=== PATIENT | female | born 1975 | race Caucasian/White ===

== ENCOUNTER 2016-08-25 22:06 | Emergency (ER) | payer MEDICAID ==
[2016-08-25 22:32] LABS: BASOPHILS 0.4 % (0.0-2.0); EOSINOPHILS 1.3 % (0-7); HEMATOCRIT 38.1 % (36.0-48.0); HEMOGLOBIN 12.2 g/dL (12-16); IMMATURE GRANULOCYTES 0.2 % (0-5); LYMPHOCYTES 37.9 % (15-50); MCH 28.4 pg (26.0-34.0); MCV 88.8 fL (80.0-100.0); MEAN PLATELET VOLUME 10.1 fL (7.4-10.4); MONOCYTES 8.8 % (2-11); NEUTROPHILS 51.4 % (40-80); PLATELET COUNT 249 10x3/uL (130-400); RBC 4.29 10x6/uL (4.00-5.40); WBC 10.2 10x3/uL (4.8-10.8)
[2016-08-25 22:49] LABS: HCG SERUM NEGATIVE (NEGATIVE)
[2016-08-26 00:55] LABS: INR 0.99 (0.85-1.17); PROTIME 12.9 SECONDS (11.6-15.0)
== END 2016-08-26 01:55 | disposition home or self-care (01) ==
LOC: D.ER 22:06
PROVIDERS: Emergency Medicine
DX: N93.9 Abnormal uterine and vaginal bleeding, unspecified (principal); F32.9 Major depressive disorder, single episode, unspecified; I10 Essential (primary) hypertension

== ENCOUNTER → 2016-08-27 12:05 | Outpatient (CLI) | payer MEDICAID | END | disposition home or self-care (01) | LOC: D.RAD 12:05 | DX: N93.9 Abnormal uterine and vaginal bleeding, unspecified (principal); R10.2 Pelvic and perineal pain ==

== ENCOUNTER → 2017-06-19 12:15 | Outpatient (CLI) | payer MEDICAID | END | disposition home or self-care (01) | LOC: D.LAB 12:15 | DX: T78.1XXA Other adverse food reactions, not elsewhere classified, initial encounter (principal); X58.XXXA Exposure to other specified factors, initial encounter ==

== ENCOUNTER 2018-02-10 08:00 | Outpatient (CLI) | payer MEDICAID | END 2018-02-10 14:15 | disposition home or self-care (01) | LOC: D.MAMMO 08:00 | DX: Z12.31 Encounter for screening mammogram for malignant neoplasm of breast (principal) ==

== ENCOUNTER → 2018-04-01 18:01 | Outpatient (CLI) | payer MEDICAID | END | disposition home or self-care (01) | LOC: D.MAMMO 03-05 13:30 | DX: R92.8 Other abnormal and inconclusive findings on diagnostic imaging of breast (principal) ==

== ENCOUNTER 2018-08-15 14:52 | Emergency (ER) | payer MEDICAID ==
[~2018-08-15] VITALS: Ht 162.6 cm; Wt 128.6 kg
[2018-08-15 15:05] VITALS: Ht 162.6 cm; Wt 128.6 kg
[2018-08-15] MEDS ORDERED: CELEXA10 MG PO (15:06)
[2018-08-15] MEDS ORDERED: DYRENIUM50 MG (15:06)
[2018-08-15 16:03] LABS: APPEARANCE CLOUDY (CLEAR); COLOR RED (YELLOW)
[2018-08-15 16:04] LABS: BILIRUBIN NEGATIVE (NEGATIVE); EPITHELIAL CELLS 0-5 /hpf (0-5); GLUCOSE NEGATIVE (NEGATIVE); KETONE SMALL mg/dL (NEGATIVE); NITRITE NEGATIVE (NEGATIVE); PROTEIN 2+ mg/dL (NEGATIVE); RED CELLS - URINE >50 /hpf (0-5); UROBILINOGEN NORMAL (NORMAL); WHITE CELLS - URINE RARE /hpf (0-5)
[2018-08-15 16:07] LABS: BASOPHILS 0.2 % (0-2); EOSINOPHILS 0.6 % (0-7); HEMATOCRIT 37.9 % (36.0-48.0); HEMOGLOBIN 12.4 g/dL (12-16); IMMATURE GRANULOCYTES 0.3 % (0-5); LYMPHOCYTES 29.5 % (15-50); MCH 28.2 pg (26.0-34.0); MCHC 32.7 g/dL (31.0-37.0); MCV 86.1 fL (80.0-100.0); MEAN PLATELET VOLUME 9.7 fL (7.4-10.4); MONOCYTES 8.7 % (2-11); NEUTROPHILS 60.7 % (40-80); PLATELET COUNT 283 10x3/uL (130-400); RDW 14.5 % (11.5-14.5); WBC 11.7 10x3/uL (4.8-10.8)
[2018-08-15 16:26] LABS: ALKALINE PHOSPHATASE 96 U/L (46-116); ALT (SGPT) 21 U/L (10-68); BILIRUBIN - TOTAL 0.11 mg/dL (0.2-1.3); CALC OSMOLALITY 275 mosm/kg (275-300); CALCIUM 8.5 mg/dL (8.5-10.1); CARBON DIOXIDE 27.2 mmol/L (21.0-32.0); CHLORIDE - SERUM 102 mmol/L (98-107); CREATININE - SERUM 0.8 mg/dL (0.6-1.3); GLUCOSE 102 mg/dL (74-106); POTASSIUM - SERUM 3.2 mmol/L (3.5-5.1); SODIUM 139 mmol/L (136-145); UREA NITROGEN 7 mg/dL (7-18); eGFR NON AFRICAN AMERICAN 84 mL/min (90-120)
[2018-08-15 17:40] LABS: HCG SERUM NEGATIVE (NEGATIVE)
[2018-08-15 20:19] VITALS: BP 143/80
[2018-08-20] MEDS ORDERED: MAXZIDE 75/501 TAB PO (15:53)
== END 2018-08-15 20:19 | disposition home or self-care (01) ==
LOC: D.ER 14:52
PROVIDERS: Family Medicine
DX: N93.8 Other specified abnormal uterine and vaginal bleeding (principal); R51 Headache; I10 Essential (primary) hypertension

== ENCOUNTER 2018-08-18 15:27 | Emergency (ER) | payer MEDICAID ==
[~2018-08-18] VITALS: Ht 162.6 cm; Wt 128.6 kg
[~2018-08-18 15:27] MED LIST: CELEXA10 MG PO; DYRENIUM50 MG
[2018-08-18 15:37] VITALS: Ht 162.6 cm; Wt 128.6 kg
[2018-08-18 16:12] LABS: BASOPHILS 0.1 % (0-2); EOSINOPHILS 0.4 % (0-7); HEMATOCRIT 37.9 % (36.0-48.0); HEMOGLOBIN 12.3 g/dL (12-16); IMMATURE GRANULOCYTES 0.3 % (0-5); LYMPHOCYTES 12.7 % (15-50); MCH 28.1 pg (26.0-34.0); MCHC 32.5 g/dL (31.0-37.0); MCV 86.5 fL (80.0-100.0); MEAN PLATELET VOLUME 9.7 fL (7.4-10.4); MONOCYTES 6.6 % (2-11); NEUTROPHILS 79.9 % (40-80); PLATELET COUNT 232 10x3/uL (130-400); RBC 4.38 10x6/uL (4.00-5.40); RDW 14.4 % (11.5-14.5); WBC 10.5 10x3/uL (4.8-10.8)
[2018-08-18 16:17] LABS: APTT 28.8 SECONDS (22.8-39.4); INR 0.96 (0.85-1.17); PROTIME 12.3 SECONDS (11.6-15.0)
[2018-08-18 16:24] LABS: ALKALINE PHOSPHATASE 96 U/L (46-116); ALT (SGPT) 17 U/L (10-68); BILIRUBIN - TOTAL 0.17 mg/dL (0.2-1.3); CALC OSMOLALITY 276 mosm/kg (275-300); CALCIUM 8.2 mg/dL (8.5-10.1); CARBON DIOXIDE 25.4 mmol/L (21.0-32.0); CHLORIDE - SERUM 103 mmol/L (98-107); CREATININE - SERUM 0.7 mg/dL (0.6-1.3); GLUCOSE 100 mg/dL (74-106); POTASSIUM - SERUM 3.6 mmol/L (3.5-5.1); PROTEIN - SERUM 7.1 g/dL (6.4-8.2); SODIUM 139 mmol/L (136-145); UREA NITROGEN 10 mg/dL (7-18); eGFR NON AFRICAN AMERICAN > 90 mL/min (90-120)
[2018-08-18 16:33] LABS: HCG - QUANTITATIVE (MATERNAL) 0 mIU/mL
[2018-08-18 17:23] VITALS: BP 143/91
[2018-08-20] MEDS ORDERED: MAXZIDE 75/501 TAB PO (15:53)
[2018-08-24 06:02] VITALS: Ht 162.6 cm; Wt 128.6 kg
== END 2018-08-18 17:24 | disposition home or self-care (01) ==
LOC: D.ER 15:27
PROVIDERS: Family Medicine
DX: N93.9 Abnormal uterine and vaginal bleeding, unspecified (principal); D25.9 Leiomyoma of uterus, unspecified; I10 Essential (primary) hypertension

== ENCOUNTER 2018-08-24 05:00 | Inpatient (IN) | payer MEDICAID ==
[2018-08-20 16:54] LABS: BASOPHILS 0.1 % (0-2); EOSINOPHILS 1.2 % (0-7); HEMATOCRIT 34.9 % (36.0-48.0); HEMOGLOBIN 11.2 g/dL (12-16); IMMATURE GRANULOCYTES 0.1 % (0-5); MCH 27.7 pg (26.0-34.0); MCHC 32.1 g/dL (31.0-37.0); MCV 86.4 fL (80.0-100.0); MEAN PLATELET VOLUME 10.1 fL (7.4-10.4); MONOCYTES 10.5 % (2-11); NEUTROPHILS 59.1 % (40-80); PLATELET COUNT 260 10x3/uL (130-400); RBC 4.04 10x6/uL (4.00-5.40); RDW 14.7 % (11.5-14.5); WBC 8.6 10x3/uL (4.8-10.8)
[2018-08-20 17:07] LABS: CALCIUM 8.3 mg/dL (8.5-10.1); CARBON DIOXIDE 26.6 mmol/L (21.0-32.0); POTASSIUM - SERUM 3.6 mmol/L (3.5-5.1)
[~2018-08-24] VITALS: Ht 162.6 cm; Wt 126.6 kg
[~2018-08-24 05:00] MED LIST changes: +MAXZIDE 75/501 TAB PO
[2018-08-24 06:01] LABS: HCG URINE NEGATIVE (NEGATIVE)
[2018-08-24 06:02] VITALS: BP 157/84; Ht 162.6 cm; Wt 126.6 kg
--- NOTE | 2018-08-24 09:24 | NUR ---
ANES APPROVED D/C ON 3 L. O2 VIA CANULA
[2018-08-24 09:46] VITALS: BP 138/69
--- NOTE | 2018-08-24 09:58 | NUR ---
SARA NAVA, MULTI PUNCH OPERATOR PAGED. PT'S O2 IS 92%, PT WAS ON 3 LNC FOR TRANSPORT AND NOW O2 HAS BEEN INCREASED TO 4L NC.
--- NOTE | 2018-08-24 10:03 | NUR ---
REPORT CALLED TO DR. SANTOS OF PT'S O2 SAT 92 % ON 3 LNC. TELEPHONE ORDER RECEIVED TO CONTINUE PT'S O2 NC AT 3L, AND MAY INCREASE TO 4L NC TO MAINTAIN O2 SAT AT 94% OR ABOVE, NOT TO GO ABOVE 6LNC. PT'S O2 NC INCREASED TO 4LNC.
--- NOTE | 2018-08-24 10:12 | NUR ---
PHONE CALL MADE TO OR #1, SPOKE WITH FARRUKH BRANDON RN WITH REPORT GIVEN THAT PT IS NOW ON 4 L O2 NC SAT 93-94%. REPORT ALSO GIVEN TO RN THAT PT IS VERY DROWSY, WILL RESPOND ON 2ND-3RD ATTEMPT WHEN SPOKEN TO, PT HAS HX OF SLEEP APNEA. REPORT GIVEN TO MD AND ANESTHESIA BY FARRUKH BRANDON RN. TELEPHONE ORDER RECEIVED FROM DR. PÉREZ/FARRUKH BRANDON RN TO OBTAIN BLOOD GAS NOW. ANESTHESIA QUESTIONS IF PT'S HOB IS ELEVATED, AND MD QUESTIONS IF PT'S LUNGS ARE CLEAR, AND ANSWER IS YES TO BOTH. Jose SAHA RN ENTERS ORDER FOR BLOOD GAS, AND NOTIFIES RESP.
--- NOTE | 2018-08-24 10:20 | NUR ---
TO PT'S ROOM, RESPIRATORY HERE TO DRAW ABG. PLAN OF CARE EXPLAINED TO PT, AND OLDER FEMALE VISITOR. PT AROUSES TO LOOK AT RN, AND IMMEDIATELY CLOSES EYES. RESP EVEN AND UL AT 14/MIN. RESP THERAPIST CONTINUES TO BE IN ROOM. O2 SAT REMAINS AT 94% ON 4L NC. SR UP X2, CALL LIGHT AND PHONE WITHIN REACH.
--- NOTE | 2018-08-24 10:37 | NUR ---
TO PT'S ROOM, INCENTIVE SPRIROMETER EXPLAINED, WITH PT DEMONSTRATING I/S WELL X 3. O2 SAT UP TO 97% ON 4LNC IMMEDIATELY AFTER USING I/S.
--- NOTE | 2018-08-24 10:42 | NUR ---
KELBY FROM RESP HERE TO TRY AND DRAW ABG, THE OTHER RESP THERAPIST WAS UNSUCCESSFUL IN OBTAINING ABG. O2 SAT ON 4LNC NOW 94%. PT ENCOURAGED TO WAKE UP, DEEP BREATHE AND COUGH. PT DEMONSTRATES STRONG COUGH X 1.
--- NOTE | 2018-08-24 10:50 | NUR ---
KELBY, RESP THERAPIST UNABLE TO OBTAIN ABG. KELBY AT DESK, AND STATES "CARLOS ALBERTO WILL COME DOWN AND TRAY AND GET THE ABG". KELBY REPORTS THAT PT IS "WAY MORE AWAKE NOW, AND STATES SHE IS ON A C-PAP AT HOME, BUT THE PATIENT SAYS SHE WILL NOT WEAR IT".
--- NOTE | 2018-08-24 11:00 | NUR ---
DR. PÉREZ AT [facility], WITH REPORT GIVEN TO MD OF PT'S ASSESSMENT, INCLUDING O2 SAT, AND PT IS CURRENTLY ON O2 4LNC. VERBAL ORDER RECEIVED FROM DR. PÉREZ TO PLACE PT ON 2L NC, TITRATE TO KEEP O2 SAT ABOVE 94%.
--- NOTE | 2018-08-24 11:05 | NUR ---
DR. PÉREZ AT [facility], REPORT GIVEN TO MD OF CURRENT O2 SATS AT 94 % ON 4LNC. RESP THERAPIST AT [facility], AND SHE INFORMS MD THAT SHE WAS UNABLE TO OBTAIN ABG. VERBAL ODER RECEIVED TO D/C ABG AT THIS TIME. MD REVIEWS MONITOR TRACING WITH VITAL SIGNS TO INCLUDE BP/P/02 SAT.
--- NOTE | 2018-08-24 14:18 | NUR ---
PT LYING IN BED, AROUSES EASILY. DOZES OFF BETWEEN BITES OF HER BROTH. PT REPORTS ABDOMINAL PAIN 1/10 AT INCISION SITE. FAMILY MEMBER AT BEDSIDE. FRESH ICE PACK PLACED ON PT INCISION. PULSE OX 98%, DECREASED O2 TO 3LPM. PT REPORTS BEING HOT, ADJUSTED TEMP SETTING ON THERMOSTAT. PT DENIES ANY FUTHER NEEDS AT THIS TIME.
--- NOTE | 2018-08-24 16:05 | NUR ---
TO PT'S ROOM, PT IS LYING IN BED, WITH O2NC AT 2L, O2 SAT 96-97%. PT HAS EATEN 50% OF HER CLEAR LIQUID DIET, DENIES NAUSEA OR SOB. PT'S FAMILY REMAINS AT BEDSIDE.
--- NOTE | 2018-08-24 17:55 | NUR ---
PT SITTING UP IN BED VISITING WITH FAMILY MEMBER. SHE IS ALERT AND ORIENTED X3. DRAINED JOAQUIN, TOTAL OUTPUT 910 ML. CLEANED PERINEUM AND PLACED CLEAN CHUCKS. NO BLEEDING WAS NOTED. REFILLED PT'S DRINK AND ICE PACK AND PLACED ON ABDOMEN. PT REPORTS "SOME PAIN" BUT STATES SHE WOULD LIKE TO WAIT FOR PAIN MEDICATION WHEN HER VISITORS LEAVE. PT DENIES ANY FURTHER NEEDS AT THIS TIME.
--- NOTE | 2018-08-24 18:30 | NUR ---
TO PT'S ROOM, PT'S FAMILY REMAINS AT BEDSIDE. PT STATES "I WILL WANT SOME PAIN MEDICATION, BUT I WANT TO WAIT UNTIL MY FAMILY LEAVES." INFORMED PT TO LET ME KNOW WHEN SHE IS READY FOR THE PAIN MEDICATION, PT AGREES. PT THEN STATES "I WOULD LIKE TO MOVE IN THE BED". PT'S POSITION CHANGED FROM BACK TO RIGHT TILT WITH PILLOWS PLACED UNDER BACK FOR SUPPORT. SRUP X2, CALL LIGHT AND PHONE WITHIN REACH. I/S DONE PER PT, WELL X3, COUGHING AND DEEP BREATHING EXERCISES DONE WELL.
--- NOTE | 2018-08-24 18:32 | OP ---
PATIENT NAME: RAISSA MEDICAL RECORD: [id number] :77 LOCATION:[id number] ADMISSION DATE:08/24/18 SURGEON: RITO PÉREZ MD DATE OF OPERATION: 08/24/2018 PREOPERATIVE DIAGNOSES: 1. Symptomatic fibroid uterus. 2. Morbid obesity. 3. Status post failed uterine artery embolization. POSTOPERATIVE DIAGNOSES: 1. Symptomatic fibroid uterus. 2. Morbid obesity. 3. Status post failed uterine artery embolization. PROCEDURES: 1. Exploratory laparotomy. 2. Bilateral salpingectomy. 3. Subtotal abdominal hysterectomy. SURGEON: Rito Pérez MD RADIATION THERAPY TECHNICIAN: Darren Magaña ANESTHESIOLOGIST: Dr. Peña ANESTHESIA: General. FINDINGS: Uterus is enlarged. There is a large fundal fibroid on the left. Overall, uterine size was approximately 12-14 weeks. Ovaries were unremarkable as well as the tubes. What was palpated of the abdominal anatomy was also unremarkable. SPECIMENS REMOVED: Bilateral tubes, uterus without cervix. SPECIMEN DISPOSITION: Pathology. ESTIMATED BLOOD LOSS: 150 cc. URINE OUTPUT: 600 cc of clear urine. FLUIDS: 1800 cc of Lactated Ringer's. COMPLICATIONS: None. DRAINS: Martin to gravity. INDICATIONS: The patient is a 42-year-old female, status post uterine artery embolization. The patient still reports heavy bleeding with intense cramping. The patient declines further medical management and requests definitive therapy. DESCRIPTION OF PROCEDURE: After informed consent was assured, the patient was taken to the operating room where anesthetic was obtained without difficulty. The patient was prepped and draped in the usual sterile fashion. A low transverse incision was made on the abdomen, carried down to the underlying OPERATIVE REPORT [id number] layer of the fascia, which was opened in the midline and extended laterally. The rectus bellies were dissected free superiorly and inferiorly and then the rectus bellies were now in the midline. The peritoneum was entered and the pelvis explored. Rolled sponges were placed in the pericolic gutters and a third sponge was placed at the corner in the cul-de-sac and the bowel was packed free of the pelvis. Using a malleable retractor and a [place] visualization, the uterine cornu was exposed on the left side. Placing a clamp over the cornual region of the left side, the uterus was elevated. The round ligament was grasped with the Brianna clamp and the broad ligament entered. Dissection was carried down anteriorly until the bladder flap was produced to the midline. Posteriorly, a window was made and 2 clamps passed through this opening. The pedicle was mobilized with scissors and a lrdm-rks-ngt stitch applied on the proximal aspect of the uteroovarian artery to obtain hemostasis. The remaining portion of the tube was removed by placing the clamp across the mesosalpinx and removing the tube with Metzenbaum scissors. A imub-nej-szl stitch was applied here for hemostasis. Dissection of the connective tissue continues along the left side of the uterus. The left vascular bundle was exposed and a Radha-Lana and a straight clamp was placed here. This pedicle was mobilized with scissors and a simple stitch in a mchj-izw-xup applied for hemostasis. Attention was directed to the right side. The uterus was elevated with clamp in a similar fashion. Brianna clamps used to elevate the round ligament and it was entered. The anterior leaf of the broad ligament was dissected all the way down and the bladder flap now fully developed. A window was made in the posterior aspect and a clamp was placed through this opening. The pedicle was mobilized with scissors and a riok-uux-ftj stitch applied for hemostasis. The connective tissue of the right side was dissected and the right vascular bundle exposed at the level of the internal os. This was doubly clamped and mobilized with scissors. Again, a simple stitch and a Radha stitch was applied here for hemostasis. Pelvis was inspected and the uterus now removed with Bovie cautery. After removal of the uterus from its attachments to the cervix, the endocervical canal was cauterized. Uterus and left tube specimen passed off the field. Attention was directed back at the right tube where a clamp was placed underneath it and it is removed with Metzenbaum scissors and a iijw-jox-jid stitch applied for hemostasis. The cervical stump was now closed with interrupted dynfsl-mw-zqvdr stitches. After it was completed, the pelvis was irrigated and irrigant removed. Inspection of the operative field revealed some bleeding at the right ovary. A running stitch of 3-0 Vicryl was used here to obtain hemostasis. Again, the pelvis was irrigated, irrigant removed and after inspection, adequate hemostasis has been achieved. The packings are now removed from the pelvis and our sponge count was correct times 1. Looped PDS was used to close the fascia. This was done in a running fashion. After the stitch was correct, a second count has been confirmed. The skin was reapproximated with a subcuticular stitch after reapproximating the deep tissues with a plain gut. Sterile dressing is applied. The patient went to the recovery area in stable condition. TRANSINT:[id number] Voice Confirmation ID: [id number] DOCUMENT ID: [id number] OPERATIVE REPORT [id number] JENNIFER HAJI JOSEPH E MD at 1832 CC: [id number] DICTATION DATE: 08/24/18 0838 ORTHOPAEDIC GENERAL: 08/24/18 1311 ADM IN [place] [id number] [place] [address]
--- NOTE | 2018-08-24 18:45 | NUR ---
PT'S O2 TURNED OFF FROM BEING ON 2LNC. WILL MONITOR OXYGEN LEVELS WITH O2 OFF.
--- NOTE | 2018-08-24 19:00 | NUR ---
SEE ALL VITAL SIGNS PRINTED OFF IN [facility].
[2018-08-24 19:49] VITALS: BP 125/61
--- NOTE | 2018-08-24 20:38 | NUR ---
1946 PT RECEIVED TIN BED AT THIS TIME. IV SITE OF LR INFUSING TO THE LFT HAND AT 50ML PER HOUR. SITE CLEAR AND PATENT. LUNGS CELAR. O2 AT 2L VIA NC NOTED. BS PRESENT, HYPOACTIVE. INCISION INTACT. NO DRAINAGE NOTED. JOAQUIN CATH PATENT WITH YELLOW URINE NOTED. PT VOMITING DURING ASSESSEMENT. NEW BAG OF LR STARTED AT 2007. WILL CONTINUE TO MONITOR. SIDERAILS UP FOR SAFETY X2. CALL LIGHT IN EASY REACH. José RO RN
--- NOTE | 2018-08-24 21:26 | NUR ---
2120 PT ASLEEP AT THIS TIME O2 DECREASED TO 1L VIA N/C. IV FLUIDS INCERASED TO 125 ML/HR. José RO RN
--- NOTE | 2018-08-24 21:31 | NUR ---
CONTACTED DR PÉREZ FOR ORDER CLARIFICATION, PT ALLERGY TO OXYCODONE REVIEWED, NEW ORDERS RECEIVED, TO NORMALIZE PT AND GET OOB TO AMBULATE IN HALLS, ADVANCE DIET TO REGULAR FOR BREAKFAST. RELAYED INFORMATION TO Rosy RO RN WHO IS CARING FOR PT.
--- NOTE | 2018-08-24 22:08 | NUR ---
2145 ORAL MEDICATIONS GIVEN AT THIS TIME. IV AND FILEY CATHETER REMOVED AT THIS TIME PER MD ORDER. 275 ML NOTED TO JOAQUIN CATH. 1266.03 ML FROM IV. PT UP TO RESTROOM TO CLEAN UP AT THIS TIME. José RO RN
--- NOTE | 2018-08-24 22:20 | NUR ---
2200 PT UP TO AMBULATE IN THE HALLWAY. PT TOLERATED WELL. WILL CONTINUE TO MONITOR. José RO RN
[2018-08-24 22:59] VITALS: BP 130/61
--- NOTE | 2018-08-24 23:51 | NUR ---
1151 PT ASSISTED TO RESTROOM. PT VOIDED 600 ML. ASSISTED WITH DEEP BREATHING EXERCISES UPON RETURN TO BED. PT STATES PAIN IS AN 8. MEDICATED WITH NORCO WITH PAIN PER MD ORDER. José RO RN
[2018-08-25 03:28] VITALS: BP 130/64
--- NOTE | 2018-08-25 03:32 | NUR ---
0330 PT RECEIVED ASLEEP EASILY AWAKENED AT THIS TIME. AFEBRILE THIS SHIFT. VOIDING WELL. DENIES PAIN THIS AM. ASSISTED TO TURN COUGH AND DEEP BREATHE THIS AM. PT TOLERATED WELL. INCISION INTACT WITOUT S/S OF INFECTION. NO ACUTE DISTRESS NOTED. SIDERAILS UP FOR SAFETY X2 CALL LIGHT IN EASY REACH. José RO RN
--- NOTE | 2018-08-25 05:43 | NUR ---
0542 PT ASLEEP AT THIS TIME 02 AT 1L VIA NC NOTED. NO ACUTE DSITRESS NOTED AT THIS TIME. José RO RN
--- NOTE | 2018-08-25 06:22 | NUR ---
0620 PT UP TO AMBULATE THIS AM IN THE [facility]. PT TOLERATED WELL. José RO RN
[2018-08-25 07:06] LABS: BASOPHILS 0.1 % (0-2); EOSINOPHILS 0 % (0-7); HEMATOCRIT 32.9 % (36.0-48.0); HEMOGLOBIN 10.5 g/dL (12-16); IMMATURE GRANULOCYTES 0.2 % (0-5); LYMPHOCYTES 14.9 % (15-50); MCH 27.8 pg (26.0-34.0); MCHC 31.9 g/dL (31.0-37.0); MONOCYTES 9.8 % (2-11); RBC 3.78 10x6/uL (4.00-5.40); RDW 14.5 % (11.5-14.5); WBC 15.1 10x3/uL (4.8-10.8)
[2018-08-25 07:16] LABS: PLATELET COUNT 324 10x3/uL (130-400)
[2018-08-25 07:31] VITALS: BP 129/67
[2018-08-25 07:31] LABS: CALC OSMOLALITY 278 mosm/kg (275-300); CALCIUM 8.5 mg/dL (8.5-10.1); CARBON DIOXIDE 26.7 mmol/L (21.0-32.0); CHLORIDE - SERUM 103 mmol/L (98-107); CREATININE - SERUM 0.8 mg/dL (0.6-1.3); GLUCOSE 109 mg/dL (74-106); POTASSIUM - SERUM 3.4 mmol/L (3.5-5.1); SODIUM 140 mmol/L (136-145); UREA NITROGEN 9 mg/dL (7-18); eGFR NON AFRICAN AMERICAN 84 mL/min (90-120)
--- NOTE | 2018-08-25 07:31 | NUR ---
SHIFT ASSESSMENT COMPLETED AT THIS TIME. PT IS AAOX3 SITTING IN LOW DUPREE WITH REGULAR MEAL TRAY SERVED. HR-RRR, PPP, BREATH SOUNDS CLEAR & UNLABORED X2. BOWEL SOUNDS ACTIVE X4. LOW TRANSVERSE INCISION C/D/I WITH BRUISING NOTED AROUND INCISION. PERIPAD PLACED AT ABD TO KEEP INCISION CLEAN AND DRY. PT REPORTS NO VAGINAL BLEEDING AND REPORTS VOIDING WITHOUT DIFFICULTY. PT REPORTS SHE HAS NOT PASSED GAS YET. DENIES N/V. SCD'S IN PLACE BILATERALLY AND CONNECTED TO PUMP. PUMP FUNCTIONING PROPERLY. NO EDEMA NOTED TO BLE. PIV NOTED TO LT HAND WITHOUT ERYTHEMA OR EDEMA NOTED TO SITE. PT DENIES FURTHER NEEDS AT THIS TIME. WILL CONTINUE TO MONITOR PRN. BED LOW, WHEELS LOCKED, CALL LIGHT AND PHONE WITHIN REACH, SIDE RAILS UP X2.
--- NOTE | 2018-08-25 09:01 | NUR ---
PT RINGS CALL LIGHT REQUESTING ASSISTANCE TO GET UP AND VOID. RN TO BEDSIDE. PT UP TO BATHROOM WITH STAND BY ASSIST. STEADY GAIT NOTED. VOIDS 200 ML CLEAR YELLOW URINE INTO [place] HAT. PT BACK TO BED PER SELF.
--- NOTE | 2018-08-25 09:05 | NUR ---
NEURONTIN AND REGLAN GIVEN PER ORDERS. SEE EMAR FOR ADMINISTRATION.
--- NOTE | 2018-08-25 11:43 | NUR ---
ROUNDS MADE. PT RESTING WITH EYES CLOSED, RESP EVEN & UNLABORED. PT LEFT UNDISTURBED AT THIS TIME.
--- NOTE | 2018-08-25 12:16 | NUR ---
PT RINGS CALL LIGHT REQUESTING CLEAN GOWN. SAME PROVIDED. PT AMB IN HALLS WITH STEADY GAIT NOTED. DENIES PAIN OR NEEDS.
--- NOTE | 2018-08-25 13:41 | NUR ---
PT REQUESTS AND RECEIVES ICE WATER. DENIES PAIN OR FURTHER NEEDS.
--- NOTE | 2018-08-25 14:02 | NUR ---
ROUNDS MADE. PT RESTING WITH EYES CLOSED, RESP EVEN & UNLABORED. PT LEFT UNDISTURBED.
--- NOTE | 2018-08-25 15:09 | NUR ---
NEURONITN AND REGLAN GIVEN PER ORDERS. SEE EMAR FOR ADMINISTRATION. PT RATES PAIN 5/10 AT THIS TIME, BUT DENIES NEEDS FOR MEDICATION STATING "I HAVE VISITORS RIGHT NOW AND THAT JUST MAKES ME TOO SLEEPY. I'LL WAIT UNTIL AFTER THEY LEAVE." DENIES FURTHER NEEDS.
[2018-08-25 15:11] VITALS: BP 120/66
--- NOTE | 2018-08-25 16:48 | NUR ---
PT SITTING UP IN BED VISITING WITH FAMILY IN ROOM X5. DENIES NEEDS AT THIS TIME. WILL CONTINUE TO MONITOR.
--- NOTE | 2018-08-25 17:42 | NUR ---
ROUNDS MADE. PT STATES "I THINK ALL MY FAMILY IS GONE FOR THE NIGHT." PT RATES PAIN 8/10 AND REQUESTS PAIN MEDICINE. WILL RETURN WITH SAME. NO FURTHER NEEDS VOICED.
--- NOTE | 2018-08-25 18:02 | NUR ---
NORCO 10/325MG X1 TAB GIVEN FOR PAIN RATED 8/10 IN ABD. PT DENIES PASSING GAS TODAY STATING "I HONESTLY DON'T KNOW IF I HAVE OR HAVEN'T. I'VE JUST BEEN SO OUT OF IT." PT REPORTS VOIDING OK, NO N/V OR GAS PAINS. REPORTS USING I.S. "THREE TIMES TODAY." ADV PT TO USE I.S. 10X PER HR. PT VERBALIZED UNDERSTANDING AND IS AGREEABLE. PT PLANS TO AMB IN HALLS "WHEN THE MEDICINE STARTS TO WORK." DENIES FURTHER NEEDS. MEAL TRAY REMOVED FROM ROOM PER PT REQUEST.
[2018-08-25 19:03] VITALS: BP 146/71
--- NOTE | 2018-08-25 19:03 | NUR ---
PM ASSESSMENT COMPLETED, TEMP 99.8, ENCOURAGED PO FLUIDS AND TCDB, USE OF INCENTIVE SPIROMETER. DEMONSTRATES 2000ML INSPIRED VOLUME WITH ENCOURAGEMENT, WEAK COUGH ELICITED. PT USING SPLINT PILLOW PRN COUGH AND MOVEMENT IN BED. LUNGS CTAB, HEART RRR WITHOUT AUDIBLE MURMUR, ABD SOFT AND NONDISTENDED, DENIES FLATUS BUT ACTIVE BOWEL SOUNDS AUSCULTATED X4 QUADS, VOIDS WITHOUT DIFFICULTY, NO BM, LUU FREELY, NEGATIVE ROSE'S SIGN B LE, PEDAL PULSES STRONG/=/+2 B. ENCOURAGED OOB TO BR, ASSISTED WITH SHOWER AND PERSONAL CARE, LINENS CHANGED. CALL LIGHT PLACED WITHIN EASY REACH ALONG WITH CUP OF ICE WATER. NO OTHER NEEDS VOICED AT THIS TIME. CONTINUE TO MONITOR.
--- NOTE | 2018-08-25 19:04 | NUR ---
BEDSIDE SHIFT REPORT GIVEN TO Jose FREITAS RN.
--- NOTE | 2018-08-25 19:35 | NUR ---
AMBULATORY IN HALLS, TOLERATES ACTIVITY WELL. CONTINUE TO MONITOR.
--- NOTE | 2018-08-25 20:19 | NUR ---
ROUNDS COMPLETED, PT RESTING WITH EYES CLOSED, RESP EVEN AND UNLABORED, CONTINUE TO MONITOR.
--- NOTE | 2018-08-25 21:08 | NUR ---
HOURLY ROUNDS COMPLETED, SCHEDULED MEDS PROVIDED WITH SIPS OF WATER, HS SNACK TRAY AND CHIPS ALSO PROVIDED. PT DENIES OTHER NEEDS AT THIS TIME, WILL CONTINUE TO MONITOR.
[2018-08-25 22:43] VITALS: BP 130/60
--- NOTE | 2018-08-25 22:43 | NUR ---
ROUNDS COMPLETED, VSS, AFEBRILE, O2 SAT 95% ON ROOM AIR. PT ROUSES TO VERBAL STIMULI ON ENTRY TO ROOM, VOICES "I FELL ASLEEP SCROLLING THROUGH FACEBOOK." DENIES PAIN OR NEEDS AT THIS TIME. CONSUMED 50% HS SNACK TRAY, FRESH CUP OF ICE WATER PROVIDED, PLACED PERSONAL BELONGINGS WITHIN EASY REACH OF PT, BED IN LOW POSITION, BRAKES LOCKED, AND SIDE RAILS UP X2, ENCOURAGED PT TO USE CALL LIGHT WITH ANY NEEDS PRN. PT STATES UNDERSTANDING.
--- NOTE | 2018-08-26 00:35 | NUR ---
AM ROUNDS COMPLETED, PT RESTING WITH HOB ELEVATED AT 30 DEGREES, EYES CLOSED, RESP EVEN AND UNLABORED, NAD NOTED. CONTINUE TO MONITOR.
--- NOTE | 2018-08-26 02:58 | NUR ---
ROUNDS COMPLETED, PT AWAKE ON ENTRY TO ROOM, DENIES PAIN OR NEEDS AT THIS TIME, CALL LIGHT REMAINS WITHIN EASY REACH OF PT. CONTINUE TO MONITOR.
[2018-08-26 03:50] VITALS: BP 146/72
--- NOTE | 2018-08-26 03:50 | NUR ---
AM ROUNDS COMPLETED, VSS, TEMP 99.0 ORALLY. CUP OF ICE WATER PROVIDED PER REQUEST, NO OTHER NEEDS VOICED AT THIS TIME, DENIES PAIN. CALL LIGHT IN EASY REACH. CONTINUE TO MONITOR.
--- NOTE | 2018-08-26 05:30 | NUR ---
PT RESTING WITH EYES CLOSED ON AM ROUNDS, NAD NOTED. CONTINUE TO MONITOR.
--- NOTE | 2018-08-26 07:14 | NUR ---
0708 PT RECEIVED IN BED AT THIS TIME RESTING WELL, EASILY AWAKENED. DENIES NEEDS AT THIS TIME. José RO RN
[2018-08-26 07:45] VITALS: BP 133/60
--- NOTE | 2018-08-26 07:57 | NUR ---
1756 PT RECEIVED IN BED AT THIS TIME AWAKE AND EATING A REGULAR BREAKFAST. ALERT AND ORIENTED. STATES BELLA LEVEL IS 4 BUT REFUSES PAIN MEDS WHEN OFFERED. VSS. LUNGS CLEAR. BS+. PT STATES THAT SHE IS PASSING FLATUS THIS AM. INCISION TO ABDOMEN INTACT. NO REDNESS/DRAINAGE/WARMTH NOTED TO INCISION LINE. SIDERAILS UP FOR SAFETY X2 CALL LIGHT IN EASY REACH. José RO RN
--- NOTE | 2018-08-26 08:34 | NUR ---
PT RECEIVED IN BED AT THIS TIME. NEURONTIN GIVEN AT THIS TIME. DISCUSSED DISCHARGE AT THIS TIME PT HAS MET CRITERIA.
--- NOTE | 2018-08-26 08:34 | NUR ---
DR ANTUNEZ GIVEN REPORT OF CURRENT PT STATUS BY PHONE, DISCHARGE ORDERS RECEIVED.
--- NOTE | 2018-08-26 09:10 | NUR ---
DR ANTUNEZ PAGED. PRESCRIPTION LEFT FOR PERCOCET AND PATIENT STATES THAT SHE IS ALLERGIC. MD ASKS THIS NURSE TO DISCUSS PAIN MEDICATION OPTIONS WITH PATIENT. IF SHE WOULD LIKE ANOTHER PRESCRIPTION, IT WOULD BE A WHILE UNTIL HE WOULD BE ABLE TO PROVIDE ONE FOR HER. José RO RN
[2018-08-26] MEDS ORDERED: NEURONTIN 300300 MG PO (09:14)
[2018-08-26] MEDS ORDERED: MOBIC7.5 MG PO (09:17)
--- NOTE | 2018-08-26 09:20 | NUR ---
DISCUSSED PAIN MEDICATION OPTIONS WITH PATIENT. PT INFORMED OF THE CURRENT PRESCRIPTION THAT SHE CURRENTLY HAS AND SHE HAS DECIDED TO WAIT FOR ANOTHER PRESCRIPTION.
--- NOTE | 2018-08-26 10:41 | NUR ---
PT COMPLAINS OF PAIN AT THIS TIME. MEDICATED FOR PAIN WITH NORCO 5/325 AT THIS TIME PER PT REQUEST. WILL CONTINUE TO MONITOR FOR PAIN RELIEF. José RO RN
--- NOTE | 2018-08-26 11:22 | NUR ---
1120PT IN BED AT THIS TIME RESTING EMCOURAGED TO AMBULATE. UNDERSTANDING VERBALIZED. STATED PAIN IS 0. WILL CONTINUE TO MONITOR. José RO RN
[2018-08-26] MEDS ORDERED: HYDROCODON-ACE1 EAC7 PO (11:29)
[2018-08-26 11:59] VITALS: BP 126/61
--- NOTE | 2018-08-26 12:16 | NUR ---
1200 PT RECEIVED IN BED AT THIS TIME. EASILY AWAKENED. VSS. DENIES PAIN AT THIS TIME. DISCHARGE INSTRUCTIONS REVIEWED WITH PATIENT AT THIS TIME. QUESTIONS ASKED AND ANSWERED. UNDERSTANDING VERBALIZED. PRESCRIPTIONS REVIEWED AND GIVEN TO PATIENT. José RO RN
--- NOTE | 2018-08-26 14:20 | NUR ---
PT RECEIVED IN BED AT THIS TIME. DENIES ANY NEEDS. PT DENIES PAIN AT THIS TIME. José RO RN
[2018-08-26 15:23] VITALS: BP 133/63
--- NOTE | 2018-08-26 15:30 | NUR ---
PT REC'S IN BED AT THIS TIME. STATES PAIN IS A 2 ON PAIN SCALE. REQUESTING PUDDING AT THIS TIME. DENIES NEEDS. José RO RN
--- NOTE | 2018-08-26 16:19 | NUR ---
161 PT DISCHARGED AT THIS TIME WITH FAMILY AT SIDE AND SUFFPORTIVE. NO ACUTE DISTRESS NOTED. José RO RN
== END 2018-08-26 16:12 | disposition home or self-care (01) | DRG 742 ==
LOC: D.SDCHOLD 05:00 → D.LD 05:00 → D.SDCHOLD 07:00 → D.LD 09:30
PROVIDERS: ADMIT Obstetrics & Gynecology
PROC: 0UT90ZZ Resection of Uterus, Open Approach (ICD-10-PCS; principal; 2018-08-24 07:00)
PROC: 0UB70ZZ Excision of Bilateral Fallopian Tubes, Open Approach (ICD-10-PCS; 2018-08-24 07:00)
DX: D25.9 Leiomyoma of uterus, unspecified (principal); Z68.42 Body mass index [BMI] 45.0-49.9, adult; E66.01 Morbid (severe) obesity due to excess calories; I10 Essential (primary) hypertension; K21.9 Gastro-esophageal reflux disease without esophagitis; F41.9 Anxiety disorder, unspecified; F32.9 Major depressive disorder, single episode, unspecified

== ENCOUNTER 2019-04-02 08:00 | Outpatient (CLI) | payer MEDICAID ==
[2018-08-24 06:02] VITALS: BMI 48.0
[~2019-04-02 08:00] MED LIST changes: +HYDROCODON-ACE1 EAC7 PO; +MOBIC7.5 MG PO; +NEURONTIN 300300 MG PO
[2019-05-18] MEDS ORDERED: TRIAMTERENE-HC1 EAC6 PO (12:19)
== END 2019-04-02 10:00 | disposition home or self-care (01) ==
LOC: D.MAMMO 08:00
PROVIDERS: ATTEND Family Medicine
DX: Z12.31 Encounter for screening mammogram for malignant neoplasm of breast (principal)

== ENCOUNTER 2019-04-19 20:10 | Emergency (ER) | payer MEDICAID ==
[~2019-04-19] VITALS: Ht 162.6 cm; Wt 137.1 kg
[2019-04-19 21:00] VITALS: Ht 162.6 cm; Wt 137.1 kg
[2019-04-19] MEDS ORDERED: CELEXA40 MG PO (21:03)
[2019-04-19 21:23] LABS: APPEARANCE CLEAR (CLEAR); BILIRUBIN NEGATIVE (NEGATIVE); COLOR YELLOW (YELLOW); GLUCOSE NEGATIVE (NEGATIVE); KETONE NEGATIVE (NEGATIVE); NITRITE NEGATIVE (NEGATIVE); PROTEIN NEGATIVE (NEGATIVE); UROBILINOGEN NORMAL (NORMAL)
[2019-04-19 21:28] LABS: BACTERIA FEW /hpf (NONE SEEN); EPITHELIAL CELLS OCC /hpf (0-5); RED CELLS - URINE 0-5 /hpf (0-5); WHITE CELLS - URINE OCC /hpf (0-5)
[2019-04-19 21:32] LABS: BASOPHILS 0.2 % (0-2); EOSINOPHILS 0.7 % (0-7); HEMATOCRIT 39.8 % (36.0-48.0); HEMOGLOBIN 13.2 g/dL (12-16); IMMATURE GRANULOCYTES 0.3 % (0-5); LYMPHOCYTES 22.1 % (15-50); MCH 27.6 pg (26.0-34.0); MCHC 33.2 g/dL (31.0-37.0); MCV 83.3 fL (80.0-100.0); MEAN PLATELET VOLUME 9.8 fL (7.4-10.4); MONOCYTES 8.3 % (2-11); NEUTROPHILS 68.4 % (40-80); RBC 4.78 10x6/uL (4.00-5.40); RDW 14.5 % (11.5-14.5); WBC 13.8 10x3/uL (4.8-10.8)
[2019-04-19 21:44] LABS: PLATELET COUNT 242 10x3/uL (130-400)
[2019-04-19 21:58] LABS: ALBUMIN 3.5 g/dL (3.4-5.0); ALKALINE PHOSPHATASE 117 U/L (46-116); ALT (SGPT) 24 U/L (10-68); AMYLASE - SERUM 26 U/L (25-115); BILIRUBIN - TOTAL 0.24 mg/dL (0.2-1.3); CALC OSMOLALITY 272 mosm/kg (275-300); CARBON DIOXIDE 28.7 mmol/L (21.0-32.0); CHLORIDE - SERUM 101 mmol/L (98-107); CREATININE - SERUM 0.9 mg/dL (0.6-1.3); GLUCOSE 117 mg/dL (74-106); LIPASE 143 U/L (73-393); POTASSIUM - SERUM 3.7 mmol/L (3.5-5.1); PROTEIN - SERUM 7.7 g/dL (6.4-8.2); SODIUM 136 mmol/L (136-145); UREA NITROGEN 12 mg/dL (7-18); eGFR NON AFRICAN AMERICAN 73 mL/min (90-120)
[2019-04-19 22:03] LABS: TROPONIN-I < 0.017 ng/mL (0.000-0.060)
[2019-04-20 00:50] VITALS: BP 148/86
[2019-05-18] MEDS ORDERED: TRIAMTERENE-HC1 EAC6 PO (12:19)
== END 2019-04-20 00:50 | disposition home or self-care (01) ==
LOC: D.ER 20:10
PROVIDERS: Family Medicine
DX: R10.31 Right lower quadrant pain (principal)

== ENCOUNTER → 2019-05-10 17:27 | Outpatient (CLI) | payer MEDICAID ==
[2019-04-19 21:00] VITALS: BMI 51.9
[~2019-05-10 17:27] MED LIST changes: +CELEXA40 MG PO; +TRIAMTERENE-HC1 EAC6 PO
== END | disposition home or self-care (01) ==
LOC: D.RAD 17:27
PROVIDERS: ATTEND Urology
DX: N20.0 Calculus of kidney (principal)

== ENCOUNTER 2019-05-20 08:26 | Day surgery (SDC) | payer MEDICAID ==
[~2019-05-20] VITALS: Ht 162.6 cm; Wt 132.9 kg
[2019-05-20 08:42] LABS: HEMATOCRIT 39.3 % (36.0-48.0); HEMOGLOBIN 12.9 g/dL (12-16); MCH 27.3 pg (26.0-34.0); MCHC 32.8 g/dL (31.0-37.0); MCV 83.1 fL (80.0-100.0); MEAN PLATELET VOLUME 9.8 fL (7.4-10.4); RBC 4.73 10x6/uL (4.00-5.40); RDW 14.8 % (11.5-14.5); WBC 8.9 10x3/uL (4.8-10.8)
[2019-05-20 08:53] LABS: CALC OSMOLALITY 280 mosm/kg (275-300); CALCIUM 8.8 mg/dL (8.5-10.1); CARBON DIOXIDE 26.7 mmol/L (21.0-32.0); CHLORIDE - SERUM 105 mmol/L (98-107); CREATININE - SERUM 0.7 mg/dL (0.6-1.3); GLUCOSE 115 mg/dL (74-106); POTASSIUM - SERUM 3.9 mmol/L (3.5-5.1); SODIUM 141 mmol/L (136-145); UREA NITROGEN 9 mg/dL (7-18); eGFR NON AFRICAN AMERICAN > 90 mL/min (90-120)
[2019-05-20 10:56] VITALS: BP 139/78; Ht 162.6 cm; Wt 132.9 kg
--- NOTE | 2019-05-20 14:53 | NUR ---
1235-PROCEDURE CANCELLED PER DR REYES DUE TO NO EVIDENCE OF KIDNEY STONES.
== END 2019-05-20 13:00 | disposition home or self-care (01) ==
LOC: D.OPS 08:26
PROVIDERS: Anesthesiology; ATTEND Urology
DX: N20.0 Calculus of kidney (principal)

== ENCOUNTER 2020-04-12 16:00 | Outpatient (CLI) | payer MEDICAID ==
[2019-05-20 10:56] VITALS: BMI 50.4
== END 2020-04-12 23:59 | disposition home or self-care (01) ==
LOC: D.MAMMO 16:00
PROVIDERS: ATTEND Family Medicine
DX: Z12.31 Encounter for screening mammogram for malignant neoplasm of breast (principal)

== ENCOUNTER → 2020-04-17 13:23 | Outpatient (CLI) | payer MEDICAID ==
[2019-05-20 10:56] VITALS: BMI 50.4
== END | disposition home or self-care (01) ==
LOC: D.US 13:23
PROVIDERS: ATTEND Family Medicine
DX: R92.8 Other abnormal and inconclusive findings on diagnostic imaging of breast (principal)

== ENCOUNTER 2020-11-13 15:01 | Outpatient (CLI) | payer OTHER ==
[2019-05-20 10:56] VITALS: BMI 50.4
== END 2020-11-13 23:59 | disposition home or self-care (01) ==
LOC: D.MAMMO 15:01
PROVIDERS: ATTEND Family Medicine
DX: R92.8 Other abnormal and inconclusive findings on diagnostic imaging of breast (principal)